=== PATIENT | male | born 1965 | race Caucasian/White ===

== ENCOUNTER 2020-05-30 11:35 | Emergency (ER) | payer OTHER ==
[~2020-05-30] VITALS: Ht 182.9 cm; Wt 69.4 kg
[2020-05-30 11:53] VITALS: Ht 182.9 cm; Wt 69.4 kg
[2020-05-30 14:58] VITALS: BP 125/87
== END 2020-05-30 14:58 | disposition home or self-care (01) ==
LOC: ED 11:35
DX: H44.001 Unspecified purulent endophthalmitis, right eye (principal)
CPT/HCPCS: J3370; J7050